=== PATIENT | female | born 1985 | race Caucasian/White ===

== ENCOUNTER 2021-12-02 06:43 | Emergency (ER) | payer OTHER ==
[2021-12-02] MEDS ORDERED: HYDROmorphone 1 MG/ML Syringe IVPUSH ONE (07:05)
[2021-12-02] MEDS ORDERED: Orphenadrine 100 MG Tab.ER PO STA (07:05)
[2021-12-02] MEDS ORDERED: Ibuprofen 600 MG Tab PO ONE (08:04)
== END 2021-12-02 08:32 | disposition home or self-care (01) ==
LOC: JD.ED 06:43
DX: S32.010A Wedge compression fracture of first lumbar vertebra, initial encounter for closed fracture (principal); V49.40XA Driver injured in collision with unspecified motor vehicles in traffic accident, initial encounter; Y92.410 Unspecified street and highway as the place of occurrence of the external cause
CPT/HCPCS: 72128; 72131; 96374; 99284; A9270; J1170